=== PATIENT | male | born 1945 | race Caucasian/White ===

== ENCOUNTER 2017-04-10 16:37 | Inpatient (IN) | payer MEDICARE, OTHER ==
[2017-04-10] VITALS (22 sets, daily range): BP systolic 72–98; BP diastolic 46–61; PULSE 104–113; RESP 18–20; TEMP 98.3; Ht 170.2 cm; Wt 88.0 kg
[~2017-04-10] VITALS: Ht 170.2 cm; Wt 88.0 kg
[~2017-04-10 16:37] MED LIST: DIABETIC MEDICATIONS; EPINEPHrine 0.1 MG/ML SYG ONE; ETOMIDATE 20 MG INJ ONE; GLIP5TAB13 PO; LISINORIL; METF-405 PO; NA BICARBONATE 8.4% 50 ML SYG ONE; ROCURONIUM 50 MG INJ ONE; TERA2CAP3 PO; [UNRECOGNIZED DRUG - REMARK]
[2017-04-10] MEDS ORDERED: PIPER-TAZO 3.375 GM IV (PMX) 100 ML IVPB STA (16:41)
[2017-04-10] MEDS ORDERED: SOD CHLORIDE 0.9% 1,000 ML IV ONE ×2 (17:00)
[2017-04-10 17:13] LABS: BASOPHIL # 0.1 10^3/ul (0.0-0.1); BASOPHILS % 0.4 % (0.0-2.0); HEMATOCRIT 38.8 % (42.0-52.0); HEMOGLOBIN 12.6 g/dl (14.0-18.0); LYMPHOCYTES # 0.8 10^3/ul (0.8-2.9); LYMPHOCYTES % 3.9 % (15.0-51.0); MEAN CORPUSCULAR HEMOGLOBIN 32.6 pg (29.0-33.0); MEAN CORPUSCULAR HGB CONC 32.5 g/dl (32.0-37.0); MEAN CORPUSCULAR VOLUME 100.3 fl (82.0-101.0); MEAN PLATELET VOLUME 10.2 fl (7.4-10.4); MONOCYTE # 1.5 10^3/ul (0.3-0.9); MONOCYTES % 7.1 % (0.0-11.0); NEUTROPHILS % 88.4 % (39.0-77.0); PLATELET COUNT 385 10^3/UL (140-415); POSITIVE DIFF @See below; RED BLOOD COUNT 3.87 10^6/ul (4.70-6.10); RED CELL DISTRIBUTION WIDTH 14.8 % (11.5-14.5); WHITE BLOOD COUNT 20.9 10^3/ul (4.8-10.8)
[2017-04-10 17:22] LABS: ADD UMIC YES; UR ASCORBIC ACID 40 mg/dL (NEGATIVE); UR BACTERIA FEW /HPF (NONE SEEN); UR BILIRUBIN (Dip) NEGATIVE (NEGATIVE); UR BLOOD (Dip) NEGATIVE (NEGATIVE); UR CLARITY CLOUDY (CLEAR); UR COLOR AMBER (YELLOW); UR GLUCOSE (Dip) 1+ mg/dL (NEGATIVE); UR KETONES (Dip) TRACE mg/dL (NEGATIVE); UR LEUKOCYTE ESTERASE (Dip) 3+ Leu/ul (NEGATIVE); UR MUCUS FEW /HPF (NONE SEEN); UR NITRITE (Dip) NEGATIVE (NEGATIVE); UR RBC 3 /HPF (0-5); UR SPECIFIC GRAVITY (Dip) 1.016 (1.003-1.030); UR TOTAL PROTEIN (Dip) 2+ mg/dl (NEGATIVE); UR UROBILINOGEN (Dip) NEGATIVE (NEGATIVE)
[2017-04-10 17:30] LABS: INR 1.08; PT RATIO 1.1
[2017-04-10 17:31] LABS: PARTIAL THROMBOPLASTIN TIME 30.5 Sec (25.0-35.0)
[2017-04-10 17:33] LABS: ALBUMIN 3.7 g/dl (3.3-4.9); ALBUMIN/GLOBULIN RATIO 1.12; BILIRUBIN,INDIRECT 0.1 mg/dl (0-1.1); BILIRUBIN,TOTAL 0.1 mg/dl (0.2-1.3); CALCIUM 8.9 mg/dl (8.4-10.2); CREATININE 1.52 mg/dl (0.61-1.24); POTASSIUM 4.8 mmol/L (3.5-5.1)
[2017-04-10] MEDS ORDERED: DOCU-144 GTB (17:37)
[2017-04-10] MEDS ORDERED: CRAN425C GTB (17:38)
[2017-04-10] MEDS ORDERED: BISA10SU75 PR (17:38)
[2017-04-10] MEDS ORDERED: IPRA3AMP INHALATION (17:40)
[2017-04-10 17:43] LABS: TROPONIN-I 0.021 ng/ml (0.00-0.12)
[2017-04-10] MEDS ORDERED: FERR220S13 GTB (17:43)
[2017-04-10] MEDS ORDERED: NA P230E RC (17:43)
[2017-04-10] MEDS ORDERED: NORepinephrine 8MG/250 ML (PMX 250 ML ONE (17:44)
[2017-04-10] MEDS ORDERED: TAMS0.4C2 GTB (17:45)
[2017-04-10] MEDS ORDERED: GLIP-95 GTB (17:45)
[2017-04-10] MEDS ORDERED: LISI20TA11 GTB (17:47)
[2017-04-10] MEDS ORDERED: METF1000 GTB (17:48)
[2017-04-10] MEDS ORDERED: ENOX30DI10 SQ (17:48)
[2017-04-10] MEDS ORDERED: MAGN400O4 GTB (17:49)
[2017-04-10] MEDS ORDERED: MULT-105 GTB (17:50)
[2017-04-10] MEDS ORDERED: HYDR-906 GTB (17:51)
--- NOTE | 2017-04-10 17:52 | RADRPT ---
PROCEDURE: XR Chest. CLINICAL INDICATION: Sepsis TECHNIQUE: AP Portable chest. COMPARISON: 01/02/2013 FINDINGS: There is marked elevation of the right hemidiaphragm. The cardiomediastinal silhouette is normal.The aortic arch is calcified. There is right perihilar co nsolidation and interstitial densities in the mid lower left lung. There are degenerative changes in the right shoulder. IMPRESSION: Right perihilar consolidation. Left lung interstitial infiltrate and basilar atelectasis. Marked elevation of the right hemidiaphragm. Physician Yadira Date Time Electronically viewed and signed by Physician Yadira on 04/10/2017 17:51 CS/
[2017-04-10] MEDS ORDERED: CARB1TAB46 GTB (17:54)
[2017-04-10] MEDS ORDERED: INSU300I SQ (17:55)
[2017-04-10] MEDS ORDERED: ACET325T33 GTB (17:56)
[2017-04-10] MEDS ORDERED: TYL500 GTB (17:56)
[2017-04-10] MEDS ORDERED: TRAM50TA2 GTB (17:57)
[2017-04-10] MEDS ORDERED: CRAN3875 GTB (17:58)
[2017-04-10] MEDS ORDERED: ASCO500S2 GTB (17:59)
[2017-04-10 18:25] LABS: Allen Test ACCEPTAB; Arterial Base Excess -10.8 mmol/L (-3.0-3); Arterial COHb 0.3 % (0.0-3.0); Arterial HCO3 18.6 mmol/L (22.0-26.0); Arterial MetHb 0.6 % (0.0-1.5); Arterial Total Hemglobin 11.4 g/dl (12.0-18.0); MODE VENT - AC
[2017-04-10] MEDS ORDERED: NORepinephrine 8MG/250 ML (PMX 250 ML IV SCH (19:30)
[2017-04-10] MEDS ORDERED: VANCOMYCIN 1 GM (PMX) 250 ML IVPB SCH (19:30)
[2017-04-10] MEDS ORDERED: FENTAnyl (DRIP) 1000 mcg/100mL 100 ML IV ONE (19:30)
[2017-04-10] MEDS: SOD CHLORIDE 0.9% 1,000 ML IV SCH (19:55)
--- NOTE | 2017-04-10 19:59 | RADRPT ---
PROCEDURE: XR Chest. CLINICAL INDICATION: Endotracheal intubation. TECHNIQUE: Single frontal view of the chest. COMPARISON: Today, about 2 hours ago. FINDINGS: Endotracheal intubation in place with tip about 46 mm above the yogesh. Left central venous line in place with the tip in the superior vena cava. Dual transcutaneous cardiac pacing pads at the left lung base. Atherosclerotic calcifications in the thoracic aorta. Mild cardiomegaly is likely present. Bilater al patchy air space disease, right greater than left, principally in the right mid lung and lung bas e and left mid lung. Airspace disease is more prominent, as the lungs demonstrate decreased inflatio n over the interval. There is a left pleural effusion. No pneumothorax. Degenerative changes in the right shoulder. Otherwise, the structures and soft tis sues are unremarkable. IMPRESSION: 1. New endotracheal intubation is seen with tip about 46 mm above the yogesh. 2. New left central venous line in place with tip in the superior vena cava. 3. New dual transcutaneous cardiac pacing pads at the left lung base. 4. Bilateral air space disease, right greater than left, with left pleural effusion. Physician Nataly Date Time Electronically viewed and signed by Physician Nataly on 04/10/2017 19:58 RS/
[2017-04-10] MEDS ORDERED: NACL 0.9% 3 ML SYG IV SCH (20:00)
[2017-04-10] MEDS ORDERED: VANCOMYCIN IV PER PHARMACY XX SCH (20:00)
[2017-04-10] MEDS ORDERED: ONDANSETRON 4 MG INJ IV PRN (20:00)
--- NOTE | 2017-04-10 21:23 | ERA ---
ER Documentation Chief Complaint Date/Time DATE: 04/10/17 TIME: 21:07 Chief Complaint BIB RA FROM [facility] C/O ALTERED MENTAL STATUS, LOW 02 , LOW BP HPI This nonverbal debilitated 72-year-old male presents from a nursing home facility for having tachycardia and hypotension and decreased mental status. This patient is nonverbal at baseline no further history taking is possible. ROS Unobtainable Medications Home Meds Reported Medications Ascorbic Acid* (Vitamin C* Liq) 500 Mg/5 Ml Syrup, 5 ML GTB TID, ML 04/10/17 Cran/Vitc/Mannose/Inulin/Brom (Uti-Stat Liquid) 3,875 Mg/30 Ml Liquid, 30 ML GTB BID 04/10/17 Tramadol HCl (Tramadol HCl) 50 Mg Tablet, 50 MG GTB BID Y for PAIN, #60 TAB 04/10/17 Acetaminophen* (Tylenol*) 500 Mg Tab, 1000 MG GTB Q4H Y for PAIN 4-6/10, TAB 04/10/17 Acetaminophen* (Tylenol*) 325 Mg Tablet, 650 MG GTB Q4H Y for MILD PAIN LEVEL 1- 3, TAB 04/10/17 Insulin Glargine,Hum.rec.anlog (Amadeo Vicente) 300 Unit/1 Ml Insuln.pen, 10 UNIT SQ QHS 04/10/17 Carbidopa/Levodopa (CARBIDOPA-LEVO 25-100 MG ODT) 1 Each Tab.rapdis, 2 TAB GTB TID, #90 TAB 04/10/17 Hydrocodone/Acetaminophen (Matheson 5-325 Tablet) 1 Each Tablet, 1 EACH GTB Q4H Y for PAIN 7-9/10, TAB 04/10/17 Multivitamin with Minerals (Multivitamins with Minerals) 1 Each Tablet, 1 EACH GTB BID, TAB 04/10/17 Magnesium Hydroxide* (Milk Of Magnesia*) 400 Mg/5 Ml Oral.susp, 30 ML GTB Q24H Y for NEEDED, ML 04/10/17 Metformin Hcl* (Metformin Hcl*) 1,000 Mg Tablet, 1000 MG GTB WITH BREAKFAST DINNE, #60 TAB 04/10/17 Enoxaparin Sodium* (Lovenox*) 30 Mg/0.3 Ml Disp.syrin, 30 MG SQ DAILY, SYR 04/10/17 Lisinopril* (Lisinopril*) 20 Mg Tablet, 20 MG GTB DAILY, #30 TAB HOLD FOR SBP BELOW 110 OR HR BELOW 60 04/10/17 Glipizide* (Glipizide*) 10 Mg Tablet, 10 MG GTB AC BREAKFAST DINNER, TAB 04/10/17 Tamsulosin Hcl* (Tamsulosin Hcl*) 0.4 Mg Cap.er.24h, 0.4 MG GTB HS, CAP 04/10/17 Na Phos,M-B/Na Phos,Di-Ba (Fleet Enema Extra) 230 Ml Enema, 230 ML RC Q2D for NEEDED, ENEMA 04/10/17 Ferrous Sulfate* (Ferrous Sulfate*) 220 Mg/5 Ml Solution, 7.5 ML GTB DAILY, ML 04/10/17 Ipratropium-Albuterol (Ipratropium-Albuterol) 0.5-3 Mg/3 Ml Ampul.neb, 1 UNIT INHALATION Q4H Y for NEEDED, #30 VIAL 04/10/17 Bisacodyl* (Bisacodyl*) 10 Mg Supp, 10 MG AR Q24H Y for NEEDED, SUPP 04/10/17 Cranberry Extract (Cranberry) 425 Mg Capsule, 425 MG GTB TID, CAP 04/10/17 Docusate Sodium* (Colace*) 100 Mg Capsule, 200 MG GTB QHS, #60 CAP 04/10/17 Discontinued Reported Medications Glipizide* (Glipizide*) 5 Mg Tablet, 5 MG PO BID 06/07/13 Terazosin Hcl* (Terazosin Hcl*) 2 Mg Capsule, 2 MG PO HS 06/07/13 Metformin Hcl (Metformin Hcl ER) 500 Mg Tab.er.24, 500 MG PO BID 06/07/13 [Lisinoril] No Conflict Check 06/06/13 [Patient Unable To Remember Meds Att] No Conflict Check 11/11/12 [Diabetic Medications] No Conflict Check 11/13/11 Allergies Allergies: Coded Allergies: No Known Allergy (Unverified , 04/10/17) PMhx/Soc History of Surgery: Yes (G TUBE) Anesthesia Reaction: Yes Hx Neurological Disorder: Yes (DEMENTIA, ENCEPHALOPATHY) Hx Respiratory Disorders: No Hx Cardiac Disorders: Yes (HTN) Hx Psychiatric Problems: No Hx Alcohol Use: Yes Hx Substance Use: No Hx Tobacco Use: Yes Smoking Status: Current every day smoker Physical Exam Vitals Vital Signs Date Time Temp Pulse Resp B/P Pulse Ox O2 Delivery O2 Flow Rate FiO2 04/10/17 19:30 110 97/57 04/10/17 19:25 111 20 99 100 04/10/17 19:00 98.2 107 20 106/61 99 Mechanical Ventilator 04/10/17 18:30 103 20 100 100 04/10/17 18:30 111 104/58 04/10/17 18:15 111 87/50 04/10/17 18:00 98.5 108 20 79/43 100 Mechanical Ventilator 04/10/17 17:45 102 59/48 04/10/17 17:40 102 60/45 04/10/17 17:40 103 16 100 100 04/10/17 17:15 98 23 73/49 95 Non Rebreather 15.0 04/10/17 17:14 Non Rebreather 15 04/10/17 17:00 109 27 77/56 96 Non Rebreather 15.0 04/10/17 16:51 99.0 118 26 59/49 95 Non Rebreather 15.0 04/10/17 16:37 109 28 77/56 96 Physical Exam Const: [] Severe distress Head: Atraumatic Eyes: Normal Conjunctiva, PERRL, unable to assess EOM ENT: Normal External Ears, Nose and Mouth. Neck: Full range of motion..~ No meningismus. Resp: Decreased BBS, labored respirations Cardio: Regular tachycardia, no murmurs Abd: Soft, no obvious tenderness, non distended. Normal bowel sounds Skin: No petechiae or rashes Back: No midline or flank tenderness Ext: No cyanosis, or edema, distal pulses intact all 4, hips and knees with flexion contractures. Neur: Nonverbal, positive corneal reflex, winces to pain. Result Diagram: 04/10/17 1648 04/10/17 1648 Results 24 hrs Laboratory Tests Test 04/10/17 16:48 04/10/17 16:50 04/10/17 17:48 04/10/17 18:45 White Blood Count 20.910^3/ul Red Blood Count 3.8710^6/ul Hemoglobin 12.6g/dl Hematocrit 38.8% Mean Corpuscular Volume 100.3fl Mean Corpuscular Hemoglobin 32.6pg Mean Corpuscular Hemoglobin Concent 32.5g/dl Red Cell Distribution Width 14.8% Platelet Count 27856^3/UL Mean Platelet Volume 10.2fl Neutrophils % 88.4% Lymphocytes % 3.9% Monocytes % 7.1% Eosinophils % 0.0% Basophils % 0.4% Nucleated Red Blood Cells % 0.0/100WBC Neutrophils # (Manual) 18.510^3/ul Lymphocytes # 0.810^3/ul Monocytes # 1.510^3/ul Eosinophils # 0.010^3/ul Basophils # 0.110^3/ul Nucleated Red Blood Cells # 0.010^3/ul Prothrombin Time 14.0Sec Prothrombin Time Ratio 1.1 INR International Normalized Ratio 1.08 Activated Partial Thromboplast Time 30.5Sec Urine Color CARLIE Urine Clarity CLOUDY Urine pH 7.0 Urine Specific [place] 1.016 Urine Ketones TRACEmg/dL Urine Nitrite NEGATIVEmg/dL Urine Bilirubin NEGATIVEmg/dL Urine Urobilinogen NEGATIVEmg/dL Urine Leukocyte Esterase 3+Yomi/ul Urine Microscopic RBC 3/HPF Urine Microscopic WBC 51/HPF Urine Calcium Oxalate Crystals FEW/HPF Urine Bacteria FEW/HPF Urine Mucus FEW/HPF Urine Hemoglobin NEGATIVEmg/dL Urine Glucose 1+mg/dL Urine Total Protein 2+mg/dl Sodium Level 141mmol/L Potassium Level 4.8mmol/L Chloride Level 97mmol/L Carbon Dioxide Level 18mmol/L Anion Gap 31 Blood Urea Nitrogen 109mg/dl Creatinine 1.52mg/dl Glucose Level 488mg/dl Lactic Acid Level 10.8mmol/L 6.7mmol/L Calcium Level 8.9mg/dl Total Bilirubin 0.1mg/dl Direct Bilirubin 0.00mg/dl Indirect Bilirubin 0.1mg/dl Aspartate Amino Transf (AST/SGOT) 62IU/L Alanine Aminotransferase (ALT/SGPT) 38IU/L Alkaline Phosphatase 120IU/L Troponin I 0.021ng/ml Total Protein 7.0g/dl Albumin 3.7g/dl Globulin 3.30g/dl Albumin/Globulin Ratio 1.12 Bedside Glucose 477mg/dL Blood Gas Specimen Source Blood arterial Arterial Blood Date Drawn 04/10/2017 6:20:35 PM Arterial Blood pH (Temp corrected) 7.121 Arterial Blood pCO2 (Temp correct) 58.4mmhg Arterial Blood pO2 (Temp corrected) 112.6mmHG Arterial Blood HCO3 18.6mmol/L Arterial Blood Base Excess -10.8mmol/L Arterial Blood Oxygen Saturation 96.9mmHG Marcus Test ACCEPTAB Arterial Blood Gas Puncture Site Left Radial Arterial Blood Carboxyhemoglobin 0.3% Arterial Blood Methemoglobin 0.6% Blood Gas A-a O2 Differential 542.0mmHg Oxyhemoglobin Percent 96.0% Total Hemoglobin 11.4g/dl Blood Gas Temperature 37.0C Blood Gas Respiration Rate 16.0 Blood Gas Actual Respiration Rate 16 Blood Gas Modality VENT - AC FiO2 100.0% Blood Gas Tidal Volume 450.0mL Blood Gas Critical Value Read Back ANGELA Lemus Blood Gas Notified Whom MDA Blood Gas Notified Time 04/10/2017 6:25:10 PM Current Medications Medications (Trade) Dose Ordered Sig/Myles Route PRN Reason Start Time Stop Time Status Last Admin Dose Admin Piperacillin Sod/ Tazobactam Sod 100 ml @ 200 mls/hr ONCE STAT IVPB 04/10/17 16:41 04/10/17 17:10 DC 04/10/17 17:26 Sodium Chloride 1,000 ml @ 1,000 mls/hr Q1H ONCE IV 04/10/17 17:00 04/10/17 17:59 DC 04/10/17 17:23 Sodium Chloride 1,000 ml @ 1,000 mls/hr Q1H ONCE IV 04/10/17 17:00 04/10/17 17:59 DC 04/10/17 17:23 Norepinephrine 250 ml @ STK-MED ONCE .ROUTE 04/10/17 17:44 04/10/17 17:45 DC Norepinephrine 250 ml @ 1.875 mls/ hr TITRATE IV 04/10/17 19:30 04/10/17 19:32 Vancomycin HCl 250 ml @ 125 mls/hr ONCE IVPB 04/10/17 19:30 04/10/17 21:29 DC 04/10/17 19:57 Fentanyl 100 ml @ 2.5 mls/hr TITRATE ONCE IV 04/10/17 19:30 04/12/17 11:29 04/10/17 20:13 Sodium Chloride (NS) 1,000 ml @ 125 mls/hr Q8H IV 04/10/17 19:34 04/10/17 19:55 Procedures/MDM Heart Exam: [Tachycardic] Lung Exam: [No Crackles] Capillary Refill: [1.5 second] Peripheral Pulses: [Radially present] Skin: [Mottled, pale] Critical care time 56 minutes: This includes treatment of severe sepsis and septic shock from multiple sources, careful fluid menstruation, early antibiotic administration, all visits patient's bedside to reassess status, discussion with admitting doctor, chart reviewed. This does not include any billable procedures ET intubation note: Patient was preoxygenated with bag mask ventilation, RSI was used a 20 mill grams of etomidate 100 mg of rocuronium, Mac 4 blade was easily introduce a size 7.5 ET tube through visualized cords. Confirmed with entitled CO2, x-ray, oxygen saturation 100% after the procedure. , Tolerated well, no consultations Central line note, left internal jugular vein: Ultrasound guidance was used to place a 7 Swedish triple-lumen catheter in the internal jugular vein using Seldinger technique. All ports flushed well there were good blood flow to all ports. Patient taught the procedure with no complications. Departure Diagnosis: Primary Impression: Septic shock Additional Impressions: Hyperglycemia Pneumonia Acute respiratory failure with hypoxia and hypercarbia Condition: Critical DEN MILLER DO Apr 10, 2017 21:23 PHARMACY PER PROTOCOL XX 04/10/17 20:00 UNV Piperacillin Sod/ Tazobactam Sod (Zosyn 3.375gm/ 100 ml (Pmx)) 100 ml @ 200 mls/hr Q6 IVPB 04/11/17 00:00 Procedures/MDM Heart Exam: [Tachycardic] Lung Exam: [No Crackles] Capillary Refill: [1.5 second] Peripheral Pulses: [Radially present] Skin: [Mottled, pale] Critical care time 56 minutes: This includes treatment of severe sepsis and septic shock from multiple sources, careful fluid menstruation, early antibiotic administration, all visits patient's bedside to reassess status, discussion with admitting doctor, chart reviewed. This does not include any billable procedures ET intubation note: Patient was preoxygenated with bag mask ventilation, RSI was used a 20 mill grams of etomidate 100 mg of rocuronium, DEN MILLER DO Apr 10, 2017 21:23
[2017-04-10] MEDS ORDERED: FAMOTIDINE 20 MG INJ IV SCH (22:00)
[2017-04-10] MEDS ORDERED: PHENYLephrine 40 MG in DEXTROSE 5% 496 ML IV SCH (22:30)
[2017-04-10] MEDS ORDERED: VANCOMYCIN 750 MG in SOD CHLORIDE 0.9% 150 ML IVPB SCH (23:30)
[2017-04-11] VITALS (68 sets, daily range): BP systolic 48–126; BP diastolic 40–82; PULSE 0–143; RESP 0–57
[2017-04-11] MEDS: PIPER-TAZO 3.375 GM IV (PMX) 100 ML IVPB SCH ×3 (00:21→13:46)
[2017-04-11] MEDS: SOD CHLORIDE 0.9% 1,000 ML IV SCH ×2 (00:22→02:59)
[2017-04-11] MEDS: PHENYLephrine 40 MG in DEXTROSE 5% 496 ML IV SCH ×2 (00:51→08:42)
[2017-04-11] MEDS ORDERED: ACCU-CHEK XX SCH ×2 (02:00)
[2017-04-11] MEDS: INSULIN ASPART [NOVOLOG] 3 ML PEN SC SCH ×2 (02:21)
[2017-04-11] MEDS ORDERED: VASOPRESSIN 60 UNIT in DEXTROSE 5% 60 ML IV SCH (05:15)
[2017-04-11] MEDS ORDERED: DEXTROSE 50% 50 ML SYRINGE IV PRN ×2 (05:30)
[2017-04-11] MEDS ORDERED: VASOPRESSIN 60 UNIT in DEXTROSE 5% 57 ML IV SCH (05:30)
[2017-04-11] MEDS ORDERED: SOD CHLORIDE 0.9% 1,000 ML IV ONE (05:30)
[2017-04-11 05:39] LABS: ABNORMAL IP MESSAGE 1; BASOPHILS % 0.3 % (0.0-2.0); EOSINOPHILS % 0.1 % (0.0-7.0); HEMATOCRIT 31.6 % (42.0-52.0); LYMPHOCYTES # 1.1 10^3/ul (0.8-2.9); LYMPHOCYTES % 8.3 % (15.0-51.0); MEAN CORPUSCULAR HEMOGLOBIN 32.7 pg (29.0-33.0); MEAN CORPUSCULAR HGB CONC 31.6 g/dl (32.0-37.0); MEAN CORPUSCULAR VOLUME 103.3 fl (82.0-101.0); MEAN PLATELET VOLUME 10.4 fl (7.4-10.4); MONOCYTE # 0.9 10^3/ul (0.3-0.9); MONOCYTES % 6.8 % (0.0-11.0); NEUTROPHILS % 84.1 % (39.0-77.0); PLATELET COUNT 387 10^3/UL (140-415); POSITIVE DIFF @See below; RED BLOOD COUNT 3.06 10^6/ul (4.70-6.10); RED CELL DISTRIBUTION WIDTH 15.5 % (11.5-14.5); WHITE BLOOD COUNT 13.4 10^3/ul (4.8-10.8)
--- NOTE | 2017-04-11 06:00 | HP ---
Date/Time of Note Date/Time of Note DATE: 04/11/17 TIME: 05:44 Assessment/Plan Lines/Catheters IV C[facility]ter Type (from [facility]): Central Line Urinary Cath still in place: Yes Assessment/Plan Assessment/Plan 1. Severe septic shock, secondary to pneumonia and a UTI -Continue pressure support and vent support -IV fluid -Broad-spectrum antibiotic -Follow-up culture results -Trend lactic acid -ID and pulmonary consult 2. Acute hypercarbic and hypoxic respiratory failure, s/p intubation -Continue vent support, pulmonary to manage -will check ABG in the morning 3. Diabetes with hyper glycemia -will start insulin drip -Check A1c in a.m. 4. Presumed acute on chronic kidney disease, from severe hypotension -Continue pressor support and IV fluid -We will place a nephrology consult 5. History of dementia, with G-tube for feeding -Acutely worsened because of septic shock. Treatment as outlined above 6. Stage I coccyx decubitus ulcer -Wound care consult DVT/GI prophylaxis: Subcu heparin/PPI Total critical time spent: About 1 hour HPI/ROS Admit Date/Time Admit Date/Time Apr 10, 2017 at 19:35 Hx of Present Illness This is a 72-year-old male with a history of hypertension, BPH dementia with G- tube for feeding, insulin dependent diabetes and a history of alcohol abuse who was sent for worsening altered mentation, hypoxia and hyperglycemia with blood glucose greater than 500. Patient is currently intubated and as such information is gathered from ER physician and notes. When he presented to the ER, he was hypotensive with BP as low as 59/49. ABG showed a pH of 7.12, PCO2 58, PO2 113 with a bicarb of about 19. Labs shows a WBC of 21,000, BUN 109, creatinine 1.52, glucose 488. Initial lactic acid was almost 11, which since trended down to around 6. His a urinalysis is consistent with UTI and chest x-ray showed pneumonia. Patient is currently admitted to ICU and and is on 3 pressors. . PMH/Family/Social Past Medical History Medical History: diabetes, hypertension, other (Dementia, BPH) Past Surgical History Past Surgical Hx: other (G-tube placement) Social History Alcohol Use: sober Smoking Status: Unknown if ever smoked Drug Use: none Exam/Review of Systems Vital Signs Vitals Vital Signs Date Time Temp Pulse Resp B/P Pulse Ox O2 Delivery O2 Flow Rate FiO2 04/11/17 05:15 83 24 74/59 91 04/11/17 05:00 Mechanical Ventilator 04/11/17 04:00 100.9 04/11/17 03:20 100 04/10/17 17:15 15.0 Intake and Output 04/10/17 04/10/17 04/11/17 15:00 23:00 07:00 Intake Total 1189.375 ml 1087.50 ml Output Total 350 ml Balance 1189.375 ml 737.50 ml Exam Constitutional: other (Intubated. No acute distress) Head: atraumatic, normocephalic Eyes: PERRL Respiratory: diminished breath sounds Cardiovascular: other (Tachycardic with regular rhythm) Gastrointestinal: other (G-tube in place with no sign of infection surrounding area), soft Extremities: normal pulses, other (Contractures lower extremity) Labs Result Diagram: 04/10/17 1648 04/10/17 1648 Medications Medications Current Medications Fentanyl 100 ml @ 2.5 mls/hr TITRATE ONCE IV Last administered on 04/10/17 20:13; Admin Dose 2.5 MLS/HR; Start 04/10/17 at 19:30; Stop 04/12/17 at 11:29 Sodium Chloride (NS) 1,000 ml @ 125 mls/hr Q8H IV Last administered on 02:59; Admin Dose 125 MLS/HR; Start 04/10/17 at 19:34 Ondansetron HCl (Zofran Inj) 4 mg Q6H PRN IV NAUSEA AND/OR VOMITING; Start at 20:00 Famotidine 20 mg 20 mg QHS IV ; Start 04/10/17 at 22:00 Piperacillin Sod/ Tazobactam Sod 100 ml @ 200 mls/hr Q6 IVPB Last administered on 04/11/17 00:21; Admin Dose 200 MLS/HR; Start 04/11/17 at 00:00 Norepinephrine 16 mg/Dextrose 500 ml @ 1.87 mls/hr TITRATE IV Last administered on 04/10/17 23:03; Admin Dose 67.5 MLS/HR; Start 04/10/17 at 22:00 Vancomycin HCl 250 ml @ 125 mls/hr Q12H IVPB ; Start 04/11/17 at 08:00 Phenylephrine HCl 40 mg/Dextrose 500 ml @ 75 mls/hr TITRATE IV Last administered on 04/11/17t 00:51; Admin Dose 75 MLS/HR; Start 04/10/17 at 23:30 Vasopressin/ Dextrose (Vasostrict/D5W) 60 ml @ 1.2 mls/hr Q12H IV ; Start 04/11 at 05:15 Diagnostic Test (Pha) (Accu-Chek) 1 ea Q1H XX ; Start 04/11/17 at 05:30 Dextrose (D50w Syringe) 25 ml Q15M PRN IV Till BS 80 mg/dL or above x2; Start 04/11/17 at 05:30 Dextrose 50 ml 50 ml Q15M PRN IV Till BS 80 mg/dL or above x2; Start 04/11/17 at 05:30 Sodium Chloride (NS) 1,000 ml @ 1,000 mls/hr Q1H ONCE IV ; Start 04/11/17 at 05 :30; Stop 04/11/17 at 06:29 MELLISA CHERY MD Apr 11, 2017 05:56
[2017-04-11 06:04] LABS: ALBUMIN 2.6 g/dl (3.3-4.9); ALBUMIN/GLOBULIN RATIO 0.96; CALCIUM 7.3 mg/dl (8.4-10.2); CREATININE 1.24 mg/dl (0.61-1.24); MAGNESIUM 2.1 mg/dl (1.7-2.5); PHOSPHORUS 2.8 mg/dl (2.5-4.9); POTASSIUM 3.9 mmol/L (3.5-5.1); TOTAL PROTEIN 5.3 g/dl (6.1-8.1)
[2017-04-11] MEDS ORDERED: DOPamine-D5W 1.6 MG/ML 250 ML ONE (06:49)
[2017-04-11 06:52] LABS: AADO2 Arterial 619.8 mmHg (7.0-24.0); Allen Test ACCEPTAB; Arterial Base Excess -17.1 mmol/L (-3.0-3); Arterial COHb 0.2 % (0.0-3.0); Arterial Fraction of Oxyhgb 83.6 % (93.0-99.0); Arterial HCO3 12.3 mmol/L (22.0-26.0); Arterial MetHb 0.2 % (0.0-1.5); Arterial Total Hemglobin 11.3 g/dl (12.0-18.0); MODE VENT - AC
[2017-04-11] MEDS ORDERED: NA BICARBONATE 8.4% 50 ML SYG ONE (06:59)
[2017-04-11] MEDS ORDERED: DOPamine-D5W 1.6 MG/ML 250 ML IV SCH (07:00)
[2017-04-11] MEDS ORDERED: NA BICARBONATE 8.4% 50 ML SYG IV ONE (07:00)
[2017-04-11] MEDS: ACCU-CHEK XX SCH ×6 (07:01→12:30)
[2017-04-11] MEDS ORDERED: SODIUM BICARBONATE (IV ADD) 100 MEQ in DEXTROSE 5%-0.45% NACL 900 ML IV SCH (07:30)
[2017-04-11] MEDS ORDERED: INSULIN ASPART [NOVOLOG] 3 ML PEN SC SCH (07:35)
[2017-04-11] MEDS ORDERED: PHENYLephrine 20MG IN 250 ML 250 ML ONE (07:36)
[2017-04-11] MEDS: INSULIN HUMAN REGULAR 100 UNIT in SOD CHLORIDE 0.9% 99 ML IV SCH ×2 (07:46→08:56)
[2017-04-11] MEDS ORDERED: VANCOMYCIN 1 GM in NS 250 ML IVPB SCH (08:00)
[2017-04-11] MEDS ORDERED: PHENYLephrine 20MG IN 250 ML 250 ML IV SCH ×2 (08:00→08:47)
[2017-04-11] MEDS ORDERED: PHENYLEPHRINE 80 MG in DEXTROSE 5% 250 ML IV SCH (12:00)
[2017-04-11] MEDS ORDERED: NOREPINEPHRINE 32 MG in DEXTROSE 5% 250 ML IV SCH (12:00)
[2017-04-11] MEDS ORDERED: NORepinephrine 32 MG in DEXTROSE 5% 218 ML IV SCH (12:30)
[2017-04-11] MEDS ORDERED: PHENYLephrine 160 MG in DEXTROSE 5% 484 ML IV SCH (12:30)
--- NOTE | 2017-04-11 13:12 | CONS ---
Date/Time of Note Date/Time of Note DATE: 04/11/17 TIME: 13:07 Assessment/Plan Assessment/Plan Additional Assessment/Plan Ventilator setting; AC of 20, tidal volume 450, PEEP of 0, 100% FiO2. Patient is on maximum doses of Levophed, vasopressin, phenylephrine, and dopamine drips. Also getting insulin drip via protocol. Chest x-ray was reviewed from today which is showing bilateral pneumonia. Assessment and recommendations; 1. Patient admitted with profound sepsis and shock. Which is a combination of severe pneumonia and UTI. 2. Severe metabolic acidosis. Patient currently on sodium bicarbonate drip. 3. Likely some element of chronic renal insufficiency. 4. Advanced dementia. Continue current supportive care. Prognosis appears extremely poor. Consultation Date/Type/Reason Admit Date/Time Apr 10, 2017 at 19:35 Date of Consultation: Apr 11, 2017 Type of Consultation: Pulmonary/critical care Hx of Present Illness Pulmonary consultation requested for evaluation of sepsis and respiratory failure. Evaluation 9:20 AM. Time of dictation is 1:05 PM due to [employer] downtime. History of presenting any; patient is a 72-year-old white male who was admitted via ER sent over from [facility] with complaints of not doing well with hypotension and being short of breath. Upon evaluation patient was found to be in severe sepsis and shock and was intubated by the ER physician and then subsequently transferred to ICU. By the time I saw the patient the patient is orally intubated, on high-dose combination pressor support. General he is unresponsive. History was obtained from medical records. Past medical history; 1. Patient with a history of dementia which apparently is fairly advanced. 2. History of G-tube placement in the past. 3. Diabetes. 4. BPH. Medications; reviewed. Allergies; none. Family history, social histories and occupational histories are not available. Review of systems; currently unable to be obtained. General exam; elderly male, orally intubated, unresponsive, currently in no distress. Past Medical History Medical History: diabetes, hypertension, other (Dementia, BPH) Past Surgical History Past Surgical Hx: other (G-tube placement) Social History Alcohol Use: sober Smoking Status: Unknown if ever smoked Drug Use: none Exam/Review of Systems Vital Signs Vitals Vital Signs Date Time Temp Pulse Resp B/P Pulse Ox O2 Delivery O2 Flow Rate FiO2 04/11/17 11:23 123 23 95 100 04/11/17 11:15 87/51 04/11/17 11:00 Mechanical Ventilator 04/11/17 08:15 98.1 04/10/17 17:15 15.0 Intake and Output 04/10/17 04/10/17 04/11/17 15:00 23:00 07:00 Intake Total 1189.375 ml 2883.55 ml Output Total 725 ml Balance 1189.375 ml 2158.55 ml Exam HEENT exam; supple neck, no JVD. No lymphadenopathy. Midline trachea. No thyromegaly. Orally intubated. Patient is edentulous. Pupils are equal and midsize and very sluggishly reactive to light. No neck masses. Chest exam; scattered crackles bilaterally. S1-S2 audible, no murmurs. Tachycardic. Regular rhythm. Abdomen exam; soft, G-tube in place. Bowel sounds are absent. No organomegaly. Treatment exam; no peripheral edema. Peripheral pulses not palpable. [employer]SM[employer] exam; patient is unresponsive. Results Result Diagram: 04/11/17 0440 04/11/17 0440 Results 24 hrs Laboratory Tests Test 04/10/17 16:48 04/10/17 16:50 04/10/17 17:48 04/10/17 18:45 White Blood Count 20.9 H Red Blood Count 3.87 L Hemoglobin 12.6 L Hematocrit 38.8 L Mean Corpuscular Volume 100.3 Mean Corpuscular Hemoglobin 32.6 Mean Corpuscular Hemoglobin Concent 32.5 Red Cell Distribution Width 14.8 H Platelet Count 385 Mean Platelet Volume 10.2 Neutrophils % 88.4 H Lymphocytes % 3.9 L Monocytes % 7.1 Eosinophils % 0.0 Basophils % 0.4 Nucleated Red Blood Cells % 0.0 Neutrophils # (Manual) 18.5 H Lymphocytes # 0.8 Monocytes # 1.5 H Eosinophils # 0.0 Basophils # 0.1 Nucleated Red Blood Cells # 0.0 Prothrombin Time 14.0 Prothrombin Time Ratio 1.1 INR International Normalized Ratio 1.08 Activated Partial Thromboplast Time 30.5 Urine Color CARLIE Urine Clarity CLOUDY A Urine pH 7.0 Urine Specific [place] 1.016 Urine Ketones TRACE A Urine Nitrite NEGATIVE Urine Bilirubin NEGATIVE Urine Urobilinogen NEGATIVE Urine Leukocyte Esterase 3+ H Urine Microscopic RBC 3 Urine Microscopic WBC 51 H Urine Calcium Oxalate Crystals FEW A Urine Bacteria FEW A Urine Mucus FEW A Urine Hemoglobin NEGATIVE Urine Glucose 1+ H Urine Total Protein 2+ H Sodium Level 141 Potassium Level 4.8 Chloride Level 97 Carbon Dioxide Level 18 L Anion Gap 31 H Blood Urea Nitrogen 109 H Creatinine 1.52 H Glucose Level 488 *H Lactic Acid Level 10.8 *H 6.7 *H Calcium Level 8.9 Total Bilirubin 0.1 L Direct Bilirubin 0.00 Indirect Bilirubin 0.1 Aspartate Amino Transf (AST/SGOT) 62 H Alanine Aminotransferase (ALT/SGPT) 38 Alkaline Phosphatase 120 Troponin I 0.021 Total Protein 7.0 Albumin 3.7 Globulin 3.30 H Albumin/Globulin Ratio 1.12 Bedside Glucose 477 *H Blood Gas Specimen Source Blood arterial Arterial Blood Date Drawn 04/10/2017 6:20:35 PM Arterial Blood pH (Temp corrected) 7.121 *L Arterial Blood pCO2 (Temp correct) 58.4 H Arterial Blood pO2 (Temp corrected) 112.6 H Arterial Blood HCO3 18.6 L Arterial Blood Base Excess -10.8 L Arterial Blood Oxygen Saturation 96.9 Marcus Test ACCEPTAB Arterial Blood Gas Puncture Site Left Radial Arterial Blood Carboxyhemoglobin 0.3 Arterial Blood Methemoglobin 0.6 Blood Gas A-a O2 Differential 542.0 H Oxyhemoglobin Percent 96.0 Total Hemoglobin 11.4 L Blood Gas Temperature 37.0 Blood Gas Respiration Rate 16.0 Blood Gas Actual Respiration Rate 16 Blood Gas Modality VENT - AC FiO2 100.0 Blood Gas Tidal Volume 450.0 Blood Gas Critical Value Read Back [place] Torrie.Katie Blood Gas Notified Whom MDA Blood Gas Notified Time 04/10/2017 6:25:10 PM Test 04/10/17 20:38 04/10/17 21:43 04/10/17 21:52 04/11/17 00:06 Bedside Glucose 333 H 325 H 403 *H Lactic Acid Level 5.3 *H Test 04/11/17 00:11 04/11/17 02:18 04/11/17 04:40 04/11/17 06:00 Bedside Glucose 343 H 386 H White Blood Count 13.4 #H Red Blood Count 3.06 #L Hemoglobin 10.0 #L Hematocrit 31.6 L Mean Corpuscular Volume 103.3 H Mean Corpuscular Hemoglobin 32.7 Mean Corpuscular Hemoglobin Concent 31.6 L Red Cell Distribution Width 15.5 H Platelet Count 387 Mean Platelet Volume 10.4 Neutrophils % 84.1 H Lymphocytes % 8.3 L Monocytes % 6.8 Eosinophils % 0.1 Basophils % 0.3 Nucleated Red Blood Cells % 0.0 Neutrophils # (Manual) 11.3 H Lymphocytes # 1.1 Monocytes # 0.9 Eosinophils # 0.0 Basophils # 0.0 Nucleated Red Blood Cells # 0.0 Sodium Level 141 Potassium Level 3.9 Chloride Level 105 Carbon Dioxide Level 18 L Anion Gap 22 #H Blood Urea Nitrogen 90 H Creatinine 1.24 Glucose Level 481 *H Hemoglobin A1c 5.0 Calcium Level 7.3 L Phosphorus Level 2.8 Magnesium Level 2.1 Total Bilirubin 0.0 L Direct Bilirubin 0.00 Indirect Bilirubin 0.0 Aspartate Amino Transf (AST/SGOT) 38 Alanine Aminotransferase (ALT/SGPT) 33 Alkaline Phosphatase 83 Total Protein 5.3 #L Albumin 2.6 #L Globulin 2.70 Albumin/Globulin Ratio 0.96 Blood Gas Specimen Source Blood arterial Arterial Blood Date Drawn 04/11/2017 6:40:56 AM Arterial Blood pH (Temp corrected) 7.071 *L Arterial Blood pCO2 (Temp correct) 43.4 Arterial Blood pO2 (Temp corrected) 49.8 *L Arterial Blood HCO3 12.3 L Arterial Blood Base Excess -17.1 L Arterial Blood Oxygen Saturation 83.9 L Marcus Test ACCEPTAB Arterial Blood Gas Puncture Site Left Radial Arterial Blood Carboxyhemoglobin 0.2 Arterial Blood Methemoglobin 0.2 Blood Gas A-a O2 Differential 619.8 H Oxyhemoglobin Percent 83.6 L Total Hemoglobin 11.3 L Blood Gas Temperature 37.0 Blood Gas Respiration Rate 20.0 Blood Gas Actual Respiration Rate 26 Blood Gas Modality VENT - AC FiO2 100.0 Blood Gas Tidal Volume 450.0 Blood Gas Critical Value Read Back Jacobo PARNELL RN Blood Gas Notified Whom Jacobo MCKEE RCP Blood Gas Notified Time 04/11/2017 6:51:46 AM Test 04/11/17 06:39 04/11/17 07:41 04/11/17 08:54 04/11/17 11:21 Bedside Glucose 448 *H 486 *H 509 *H 466 *H Medications Medications Current Medications Fentanyl 100 ml @ 2.5 mls/hr TITRATE ONCE IV Last administered on 04/10/17t 20:13; Admin Dose 2.5 MLS/HR; Start 8/29/17 at 19:30; Stop 04/12/17 at 11:29 Sodium Chloride (NS) 1,000 ml @ 125 mls/hr Q8H IV Last administered on 02:59; Admin Dose 125 MLS/HR; Start 04/10/17 at 19:34 Ondansetron HCl (Zofran Inj) 4 mg Q6H PRN IV NAUSEA AND/OR VOMITING; Start at 20:00 Famotidine 20 mg 20 mg QHS IV ; Start 04/10/17 at 22:00 Piperacillin Sod/ Tazobactam Sod 100 ml @ 200 mls/hr Q6 IVPB Last administered on 04/11/17 08:42; Admin Dose 200 MLS/HR; Start 04/11/17 at 00:00 Vancomycin HCl 250 ml @ 125 mls/hr Q12H IVPB Last administered on 04/11/17 08 :43; Admin Dose 125 MLS/HR; Start 04/11/17 at 08:00 Vasopressin/ Dextrose (Vasostrict/D5W) 60 ml @ 1.2 mls/hr Q12H IV Last administered on 04/11/17 05:56; Admin Dose 1.2 MLS/HR; Start 04/11/17 at 05:15 Diagnostic Test (Pha) (Accu-Chek) 1 ea Q1H XX Last administered on 04/11/17 11 :22; Admin Dose 1 EA; Start 04/11/17 at 05:30 Dextrose (D50w Syringe) 25 ml Q15M PRN IV Till BS 80 mg/dL or above x2; Start 04/11/17 at 05:30 Dextrose 50 ml 50 ml Q15M PRN IV Till BS 80 mg/dL or above x2; Start 04/11/17 at 05:30 Dopamine HCl/ Dextrose 250 ml @ 6.6 mls/hr TITRATE IV Last administered on 07:06; Admin Dose 16.5 MLS/HR; Start 04/11/17 at 07:00 Sodium Bicarbonate 100 meq/Dextrose/ Sodium Chloride 1,000 ml @ 50 mls/hr Q20H IV Last administered on 04/11/17 11:15; Admin Dose 50 MLS/HR; Start 04/11/17 at 07:30 Norepinephrine 32 mg/Dextrose 250 ml @ 0.46 mls/hr TITRATE IV ; Start 04/11/17 at 12:30 Phenylephrine HCl/ Dextrose (Collin-Syneph/D5W) 500 ml @ 18.75 mls/ hr TITRATE IV ; Start 04/11/17 at 12:30 Miscellaneous Information (*Rx Drug Level Order Reminder*) VANCO TROUGH @ 1, 900 ON... ONCE ONCE XX ; Start 04/11/17 at 19:00; Stop 04/11/17 at 19:01 SAQIB MIRANDA Apr 11, 2017 13:12
--- NOTE | 2017-04-11 15:34 | EN ---
Date/Time of Note Date/Time of Note DATE: 04/11/17 TIME: 15:33 ER Progress Note I was called to the patient's bedside because of a CODE BLUE. In short: This is a patient on multiple pressors, intubated who has a CODE BLUE. General: Unresponsive Head: Normocephalic, atraumatic Eyes: Fixed and dilated pupils ENT: Moist mucous membranes Neck: Supple, no lymphadenopathy Respiratory: No spontaneous respiratory activity Cardiovascular: No spontaneous cardiac activity Abdominal: Soft, non-protuberant, no pulsatile mass : Deferred MSK: No spontaneous motor activity Neurologic: No spontaneous neurologic activity Skin: No evidence of trauma Cardiopulmonary Resuscitation by me: See code documentation for specific details. ACLS and BLS were performed with high quality chest compressions and minimal interruptions. Reversible causes were assessed and treated. CODE BLUE events: The patient had return of spontaneous circulation upon my arrival. The patient had received 2 rounds of epinephrine. The patient is on multiple pressors. He is elderly with significant comorbidities. Patient does not have any family members. This is a case that further care may be futile. I recommended ethics committee initiation and consultation as the patient would benefit from palliation. Disposition: Further care by hospitalist team Diagnostic impression: Cardiac arrest with return of spontaneous circulation CHAY GUADARRAMA MD Apr 11, 2017 15:34
--- NOTE | 2017-04-11 15:35 | DES ---
Date/Time of Note Date/Time of Note DATE: 04/11/17 TIME: 15:30 Discharge/ Summary Admission/Discharge Info Admit Date/Time Apr 10, 2017 at 19:35 Discharge Date/Time April 11, 2017 Final Diagnosis Cardio pulmonary failure secondary to septic shock from UTI and pneumonia Preliminary Cause of Cardio pulmonary failure secondary to septic shock Hospital Course Patient is a 72-year-old male with a history of hypertension, BPH dementia with G-tube for feeding, insulin dependent diabetes and a history of alcohol abuse who was sent for worsening altered mentation, hypoxia and hyperglycemia with blood glucose greater than 500. Patient was intubated and was requiring multiple pressors, patient's hemodynamics continued to worsen and his blood cultures showed likely staph. Patient evidence of a UTI as well as pneumonia. Patient's pressors were maxed ultimately patient coded, this was performed multiple times this patient coded several times. No known family members to be contacted worker was on the case. Patient ultimately went to cardiac arrest and cannot be resuscitated with ACLS and patient was pronounced at 1400 on 2016. Pending Labs/Cultures Laboratory Tests Test 04/10/17 16:48 04/10/17 16:50 04/10/17 17:48 04/10/17 18:45 White Blood Count 20.910^3/ul (4.8-10.8) Red Blood Count 3.8710^6/ul (4.70-6.10) Hemoglobin 12.6g/dl (14.0-18.0) Hematocrit 38.8% (42.0-52.0) Mean Corpuscular Volume 100.3fl (82.0-101.0) Mean Corpuscular Hemoglobin 32.6pg (29.0-33.0) Mean Corpuscular Hemoglobin Concent 32.5g/dl (32.0-37.0) Red Cell Distribution Width 14.8% (11.5-14.5) Platelet Count 91852^3/UL (140-415) Mean Platelet Volume 10.2fl (7.4-10.4) Neutrophils % 88.4% (39.0-77.0) Lymphocytes % 3.9% (15.0-51.0) Monocytes % 7.1% (0.0-11.0) Eosinophils % 0.0% (0.0-7.0) Basophils % 0.4% (0.0-2.0) Nucleated Red Blood Cells % 0.0/100WBC (0.0-0.0) Neutrophils # (Manual) 18.510^3/ul (1.7-7.5) Lymphocytes # 0.810^3/ul (0.8-2.9) Monocytes # 1.510^3/ul (0.3-0.9) Eosinophils # 0.010^3/ul (0.0-0.5) Basophils # 0.110^3/ul (0.0-0.1) Nucleated Red Blood Cells # 0.010^3/ul (0.0-0.0) Prothrombin Time 14.0Sec (12.2-14.2) Prothrombin Time Ratio 1.1 INR International Normalized Ratio 1.08 Activated Partial Thromboplast Time 30.5Sec (25.0-35.0) Urine Color CARLIE (YELLOW) Urine Clarity CLOUDY (CLEAR) Urine pH 7.0 (5.0-9.0) Urine Specific [place] 1.016 (1.003-1.030) Urine Ketones TRACEmg/dL (NEGATIVE) Urine Nitrite NEGATIVEmg/dL (NEGATIVE) Urine Bilirubin NEGATIVEmg/dL (NEGATIVE) Urine Urobilinogen NEGATIVEmg/dL (NEGATIVE) Urine Leukocyte Esterase 3+[place]/ul (NEGATIVE) Urine Microscopic RBC 3/HPF (0-5) Urine Microscopic WBC 51/HPF (0-5) Urine Calcium Oxalate Crystals FEW/HPF (NONE SEEN) Urine Bacteria FEW/HPF (NONE SEEN) Urine Mucus FEW/HPF (NONE SEEN) Urine Hemoglobin NEGATIVEmg/dL (NEGATIVE) Urine Glucose 1+mg/dL (NEGATIVE) Urine Total Protein 2+mg/dl (NEGATIVE) Sodium Level 141mmol/L (135-144) Potassium Level 4.8mmol/L (3.5-5.1) Chloride Level 97mmol/L (97-110) Carbon Dioxide Level 18mmol/L (21-31) Anion Gap 31 (8-16) Blood Urea Nitrogen 109mg/dl (7-20) Creatinine 1.52mg/dl (0.61-1.24) Glucose Level 488mg/dl (70-220) Lactic Acid Level 10.8mmol/L (0.5-2.0) 6.7mmol/L (0.5-2.0) Calcium Level 8.9mg/dl (8.4-10.2) Total Bilirubin 0.1mg/dl (0.2-1.3) Direct Bilirubin 0.00mg/dl (0.00-0.20) Indirect Bilirubin 0.1mg/dl (0-1.1) Aspartate Amino Transf (AST/SGOT) 62IU/L (15-46) Alanine Aminotransferase (ALT/SGPT) 38IU/L (13-69) Alkaline Phosphatase 120IU/L (42-121) Troponin I 0.021ng/ml (0.00-0.12) Total Protein 7.0g/dl (6.1-8.1) Albumin 3.7g/dl (3.3-4.9) Globulin 3.30g/dl (1.3-3.2) Albumin/Globulin Ratio 1.12 Bedside Glucose 477mg/dL (70-220) Blood Gas Specimen Source Blood arterial Arterial Blood Date Drawn 04/10/2017 6:20:35 PM Arterial Blood pH (Temp corrected) 7.121 (7.350-7.450) Arterial Blood pCO2 (Temp correct) 58.4mmhg (35-45) Arterial Blood pO2 (Temp corrected) 112.6mmHG (80-90.0) Arterial Blood HCO3 18.6mmol/L (22.0-26.0) Arterial Blood Base Excess -10.8mmol/L (-3.0-3) Arterial Blood Oxygen Saturation 96.9mmHG (95.0-100.0) Marcus Test ACCEPTAB Arterial Blood Gas Puncture Site Left Radial Arterial Blood Carboxyhemoglobin 0.3% (0.0-3.0) Arterial Blood Methemoglobin 0.6% (0.0-1.5) Blood Gas A-a O2 Differential 542.0mmHg (7.0-24.0) Oxyhemoglobin Percent 96.0% (93.0-99.0) Total Hemoglobin 11.4g/dl (12.0-18.0) Blood Gas Temperature 37.0C Blood Gas Respiration Rate 16.0 Blood Gas Actual Respiration Rate 16 Blood Gas Modality VENT - AC FiO2 100.0% Blood Gas Tidal Volume 450.0mL Blood Gas Critical Value Read Back [place] M.D. Blood Gas Notified Whom MDA Blood Gas Notified Time 04/10/2017 6:25:10 PM Test 04/10/17 20:38 04/10/17 21:43 04/10/17 21:52 04/11/17 00:06 Bedside Glucose 333mg/dL (70-220) 325mg/dL (70-220) 403mg/dL (70-220) Lactic Acid Level 5.3mmol/L (0.5-2.0) Test 04/11/17 00:11 04/11/17 02:18 04/11/17 04:40 04/11/17 06:00 Bedside Glucose 343mg/dL (70-220) 386mg/dL (70-220) White Blood Count 13.410^3/ul (4.8-10.8) Red Blood Count 3.0610^6/ul (4.70-6.10) Hemoglobin 10.0g/dl (14.0-18.0) Hematocrit 31.6% (42.0-52.0) Mean Corpuscular Volume 103.3fl (82.0-101.0) Mean Corpuscular Hemoglobin 32.7pg (29.0-33.0) Mean Corpuscular Hemoglobin Concent 31.6g/dl (32.0-37.0) Red Cell Distribution Width 15.5% (11.5-14.5) Platelet Count 11092^3/UL (140-415) Mean Platelet Volume 10.4fl (7.4-10.4) Neutrophils % 84.1% (39.0-77.0) Lymphocytes % 8.3% (15.0-51.0) Monocytes % 6.8% (0.0-11.0) Eosinophils % 0.1% (0.0-7.0) Basophils % 0.3% (0.0-2.0) Nucleated Red Blood Cells % 0.0/100WBC (0.0-0.0) Neutrophils # (Manual) 11.310^3/ul (1.7-7.5) Lymphocytes # 1.110^3/ul (0.8-2.9) Monocytes # 0.910^3/ul (0.3-0.9) Eosinophils # 0.010^3/ul (0.0-0.5) Basophils # 0.010^3/ul (0.0-0.1) Nucleated Red Blood Cells # 0.010^3/ul (0.0-0.0) Sodium Level 141mmol/L (135-144) Potassium Level 3.9mmol/L (3.5-5.1) Chloride Level 105mmol/L (97-110) Carbon Dioxide Level 18mmol/L (21-31) Anion Gap 22 (8-16) Blood Urea Nitrogen 90mg/dl (7-20) Creatinine 1.24mg/dl (0.61-1.24) Glucose Level 481mg/dl (70-220) Hemoglobin A1c 5.0% (0-5.9) Calcium Level 7.3mg/dl (8.4-10.2) Phosphorus Level 2.8mg/dl (2.5-4.9) Magnesium Level 2.1mg/dl (1.7-2.5) Total Bilirubin 0.0mg/dl (0.2-1.3) Direct Bilirubin 0.00mg/dl (0.00-0.20) Indirect Bilirubin 0.0mg/dl (0-1.1) Aspartate Amino Transf (AST/SGOT) 38IU/L (15-46) Alanine Aminotransferase (ALT/SGPT) 33IU/L (13-69) Alkaline Phosphatase 83IU/L (42-121) Total Protein 5.3g/dl (6.1-8.1) Albumin 2.6g/dl (3.3-4.9) Globulin 2.70g/dl (1.3-3.2) Albumin/Globulin Ratio 0.96 Blood Gas Specimen Source Blood arterial Arterial Blood Date Drawn 04/11/2017 6:40:56 AM Arterial Blood pH (Temp corrected) 7.071 (7.350-7.450) Arterial Blood pCO2 (Temp correct) 43.4mmhg (35-45) Arterial Blood pO2 (Temp corrected) 49.8mmHG (80-90.0) Arterial Blood HCO3 12.3mmol/L (22.0-26.0) Arterial Blood Base Excess -17.1mmol/L (-3.0-3) Arterial Blood Oxygen Saturation 83.9mmHG (95.0-100.0) Marcus Test ACCEPTAB Arterial Blood Gas Puncture Site Left Radial Arterial Blood Carboxyhemoglobin 0.2% (0.0-3.0) Arterial Blood Methemoglobin 0.2% (0.0-1.5) Blood Gas A-a O2 Differential 619.8mmHg (7.0-24.0) Oxyhemoglobin Percent 83.6% (93.0-99.0) Total Hemoglobin 11.3g/dl (12.0-18.0) Blood Gas Temperature 37.0C Blood Gas Respiration Rate 20.0 Blood Gas Actual Respiration Rate 26 Blood Gas Modality VENT - AC FiO2 100.0% Blood Gas Tidal Volume 450.0mL Blood Gas Critical Value Read Back Jacobo PARNELL RN Blood Gas Notified Whom Jacobo MCKEE RCP Blood Gas Notified Time 04/11/2017 6:51:46 AM Test 04/11/17 06:39 04/11/17 07:41 04/11/17 08:54 04/11/17 10:10 Bedside Glucose 448mg/dL (70-220) 486mg/dL (70-220) 509mg/dL (70-220) 452mg/dL (70-220) Test 04/11/17 11:21 04/11/17 12:39 04/11/17 12:59 Bedside Glucose 466mg/dL (70-220) 472mg/dL (70-220) 433mg/dL (70-220) Microbiology Date/Time Source Procedure Growth Status 04/10/17 16:58 Blood Blood Culture - Preliminary Gram Pos Cocci In Pair,Cluster Resulted 04/10/17 16:48 Blood Blood Culture - Preliminary Gram Pos Cocci In Pair,Cluster Resulted 04/11/17 09:00 Feces Clostridium difficile Toxin Assay - Final Complete KASH TOSCANO Apr 11, 2017 15:35
== END 2017-04-11 14:00 | disposition expired | DRG 871 ==
LOC: E/R 16:37 → ICU 19:35
PROVIDERS: ADMIT Internal Medicine; ATTEND Internal Medicine
PROC: 5A1935Z Respiratory Ventilation, Less than 24 Consecutive Hours (ICD-10-PCS; principal; 2017-04-11)
PROC: 0BH17EZ Insertion of Endotracheal Airway into Trachea, Via Natural or Artificial Opening (ICD-10-PCS; 2017-04-11)
DX: A41.9 Sepsis, unspecified organism (principal); R65.21 Severe sepsis with septic shock; J96.00 Acute respiratory failure, unspecified whether with hypoxia or hypercapnia; J96.01 Acute respiratory failure with hypoxia; J18.9 Pneumonia, unspecified organism; N39.0 Urinary tract infection, site not specified; E87.2 Acidosis; R73.9 Hyperglycemia, unspecified; Z72.0 Tobacco use; F03.90 Unspecified dementia, unspecified severity, without behavioral disturbance, psychotic disturbance, mood disturbance, and anxiety; N18.9 Chronic kidney disease, unspecified; I46.9 Cardiac arrest, cause unspecified
CPT/HCPCS: 31500; 36415; 36600; 71010; 76937; 80053; 81001; 82803; 82962; 83036; 83605; 83735; 84100; 84484; 85025; 85610; 85730; 87040; 87045; 87075; 87081; 87086; 92950; 93005; 94002; 94003; 94770; 96374; 96375; 96376; J0171; J1265; J1815; J2370; J2543; J3010; J3370; J7030; J7042; J7060; J7070